=== PATIENT | female | born 2000 | race Hispanic/Latino ===

== ENCOUNTER 2024-04-14 18:32 | Inpatient (IN) | payer OTHER ==
[2024-04-14 19:07] VITALS: BMI 31.2
[2024-04-14] MEDS ORDERED: Tranexamic Acid 1,000 MG/10 ML VIAL IVP PRN ×2 (19:17→20:28)
[2024-04-14] MEDS ORDERED: hydrALAZINE 20 MG/ML VIAL SLOW IVP PRN ×2 (19:17→20:28)
[2024-04-14] MEDS ORDERED: Methylergonovine 0.2 MG/ML VIAL IM PRN ×2 (19:17→20:28)
[2024-04-14] MEDS ORDERED: Ondansetron PF 4 MG/2 ML Vial IVP PRN ×2 (19:17→20:28)
[2024-04-14] MEDS ORDERED: Docusate 100 MG CAP PO PRN (19:17)
[2024-04-14] MEDS ORDERED: Ibuprofen 800 MG TAB PO PRN (19:17)
[2024-04-14] MEDS ORDERED: Misoprostol 200 MCG TAB PR PRN ×2 (19:17→20:28)
[2024-04-14] MEDS ORDERED: Promethazine HCl 25 MG/ML VIAL IM PRN ×2 (19:17→20:28)
[2024-04-14] MEDS ORDERED: Diphenoxylate HCl/Atropine Tablet PO PRN ×3 (19:17→20:28)
[2024-04-14] MEDS ORDERED: Acetaminophen 500 MG TAB PO PRN ×2 (19:17→20:28)
[2024-04-14] MEDS ORDERED: Carboprost 250 MCG/ML AMP IM PRN ×2 (19:17→20:28)
[2024-04-14] MEDS ORDERED: Lidocaine 1% (PF) 30 ML VIAL SC PRN (19:17)
[2024-04-14] MEDS ORDERED: fentaNYL 50 mcg/mL 1 mL Vial SLOW IVP PRN ×2 (19:17→20:28)
[2024-04-14] MEDS ORDERED: Penicillin G Potassium 5 MILL.UNITS in Sodium Chloride 0.9% 100 ML IVPB SCH (19:30)
[2024-04-14] MEDS ORDERED: Penicillin G 2.5 MILL.units 2.5 MILL.UNITS in Premix 1 BAG IVPB SCH (19:30)
[2024-04-14] MEDS ORDERED: Oxytocin 30 units/NS 500 ML 500 ML IV SCH ×3 (19:30)
[2024-04-14 19:52] LABS: Hematocrit 31.5 % (34.9-44.5); Hemoglobin 9.5 g/dL (12.0-15.5); Mean Corpuscular HGB CONC 30.2 g/dL (32.0-36.0); Mean Corpuscular Hemoglobin 22.6 pg (27.0-33.0); Mean Corpuscular Volume 74.8 fL (81.6-98.3); Mean Platelet Volume 10.9 fL (7.4-10.4); Platelet Count 220 10x3/uL (150-450); RBC Distribution Width 15.4 % (11.5-14.5); Red Blood Cell (RBC) Count 4.21 10x6/uL (3.90-5.03); White Blood Cell (WBC) Count 8.2 10x3/uL (3.5-10.5)
[2024-04-14 20:24] LABS: Syphilis Antibody Nonreactive (Nonreactive); Syphilis Antibody Index 0.02 S/CO (<1.00 Non-Reactive)
[2024-04-14 20:26] LABS: HBsAg Index 0.15 S/CO (0-0.99); Hep B Surf Ag - L&D Non-Reactive S/CO (NonReactive)
[2024-04-14] MEDS ORDERED: Famotidine/PF 20 mg/2ml Vial SLOW IVP PRN (20:28)
[2024-04-14] MEDS ORDERED: Bicitra 30 ML UDCUP PO PRN (20:28)
[2024-04-14] MEDS ORDERED: CEFAZOLIN 2 GM in Sodium Chloride 0.9% 100 ML IVPB SCH (20:30)
[2024-04-15 10:07] LABS: Analyzer IN Cardio CS NICU; Critical Notified Whom: KRUCL; RapidComm Collect By CBN
[2024-04-15 10:10] LABS: Analyzer IN Cardio CS NICU; Critical Notified Whom: KRUCL; RapidComm Collect By CBN; pH (Cord, venous) 7.345 (7.250-7.350)
[2024-04-15] MEDS ORDERED: Acetaminophen 325 MG TAB PO PRN (10:49)
[2024-04-15] MEDS ORDERED: Methylergonovine 0.2 MG/ML VIAL IM PRN (10:49)
[2024-04-15] MEDS ORDERED: Lanolin Ointment 7 GM TUBE TOP PRN (10:49)
[2024-04-15] MEDS ORDERED: HYDROcodone/Acetaminophen 5/325 mg Tablet PO PRN ×2 (10:49)
[2024-04-15] MEDS ORDERED: Misoprostol 200 MCG TAB PR PRN (10:49)
[2024-04-15] MEDS ORDERED: hydrALAZINE 20 MG/ML VIAL SLOW IVP PRN (10:49)
[2024-04-15] MEDS ORDERED: Promethazine HCl 25 MG/ML VIAL IM PRN ×2 (10:49→12:04)
[2024-04-15] MEDS ORDERED: Oxytocin 30 units/NS 500 ML 500 ML IV SCH (11:00)
[2024-04-15] MEDS ORDERED: Ondansetron PF 4 MG/2 ML Vial IVP PRN ×2 (12:04)
[2024-04-15] MEDS ORDERED: Naloxone HCl 0.4 mg/ml Vial IVP PRN ×2 (12:04)
[2024-04-15] MEDS ORDERED: Moisturizing Cream (Eucerin) 113 GM JAR TOP PRN (12:04)
[2024-04-15] MEDS ORDERED: diphenhydrAMINE 50 MG/ML VIAL IVP PRN (12:04)
[2024-04-15] MEDS ORDERED: Naloxone HCl 0.4 mg/ml Vial IV PRN (12:04)
[2024-04-15] MEDS ORDERED: HYDROmorphone 0.5 MG/0.5 ML SYRINGE SLOW IVP PRN (12:04)
[2024-04-15] MEDS ORDERED: Meperidine HCl/PF 25 MG (1 mL) VIAL SLOW IVP PRN (12:04)
[2024-04-15] MEDS ORDERED: fentaNYL 50 mcg/mL 1 mL Vial SLOW IVP PRN (12:04)
[2024-04-15] MEDS ORDERED: Communication Order-Pharmacy FS SCH (12:15)
[2024-04-15] MEDS: Lactated Ringer's 1,000 ML IV SCH (12:17)
[2024-04-15] MEDS: Oxytocin 30 units/NS 500 ML 500 ML IV SCH (12:17)
[2024-04-15] MEDS: Ketorolac Tromethamine 30 MG (1 mL) VIAL IVP SCH (12:18)
[2024-04-15] MEDS: fentaNYL 50 mcg/mL 1 mL Vial ONE (13:53)
[2024-04-15] MEDS: Morphine PF 10 MG/10 ML VIAL ONE (13:54)
[2024-04-15] MEDS: Oxytocin 10 UNITS/ML VIAL ONE (13:54)
[2024-04-15] MEDS: Ondansetron PF 4 MG/2 ML Vial ONE (13:54)
[2024-04-15] MEDS: PHENYLEPHRINE-NS 100 MCG/ML 10 ML SYRINGE ONE (13:54)
[2024-04-15] MEDS: Dexamethasone 10 MG/ML VIAL ONE (13:54)
[2024-04-15] MEDS ORDERED: Ibuprofen 800 MG TAB PO SCH (14:00)
[2024-04-15] MEDS: Ondansetron PF 4 MG/2 ML Vial IVP PRN (16:48)
[2024-04-15] MEDS: Ketorolac Tromethamine 30 MG (1 mL) VIAL IVP PRN (18:13)
[2024-04-15] MEDS: Ferrous Sulfate 325 MG TAB PO SCH (22:05)
[2024-04-15] MEDS: Docusate 100 MG CAP PO SCH (22:05)
[2024-04-16 04:19] LABS: Hemoglobin 7.7 g/dL (12.0-15.5); Mean Corpuscular HGB CONC 29.6 g/dL (32.0-36.0); Mean Corpuscular Hemoglobin 22.4 pg (27.0-33.0); Mean Corpuscular Volume 75.6 fL (81.6-98.3); Mean Platelet Volume 11.3 fL (7.4-10.4); Platelet Count 207 10x3/uL (150-450); RBC Distribution Width 15.3 % (11.5-14.5); Red Blood Cell (RBC) Count 3.44 10x6/uL (3.90-5.03); White Blood Cell (WBC) Count 11.7 10x3/uL (3.5-10.5)
[2024-04-16] MEDS: Prenatal Vitamin 1 TAB PO SCH (08:16)
[2024-04-16] MEDS: HYDROcodone/Acetaminophen 5/325 mg Tablet PO PRN ×2 (08:17→16:48)
[2024-04-16] MEDS: Sodium Ferric Gluconate 250 MG, Admixture Fee 1 EACH in Sodium Chloride 0.9% 250 ML 250 ML IVPB SCH (11:21)
[2024-04-16] MEDS: Ibuprofen 800 MG TAB PO SCH (13:35)
[2024-04-16] MEDS: Simethicone Chewable 80 MG TAB PO PRN (13:38)
[2024-04-17] MEDS: Ibuprofen 800 MG TAB PO SCH (05:47)
[2024-04-18 07:58] VITALS: BP 107/75; TEMP 97.7
== END 2024-04-18 12:10 | disposition home or self-care (01) | DRG 787 ==
LOC: CSHLD 18:32 → CSHPP 04-15 13:45
PROVIDERS: ADMIT Family Medicine; ATTEND Family Medicine
PROC: 10D00Z1 Extraction of Products of Conception, Low, Open Approach (ICD-10-PCS; principal; 2024-04-15)
DX: O36.5930 Maternal care for other known or suspected poor fetal growth, third trimester, not applicable or unspecified (principal); D62 Acute posthemorrhagic anemia; Z3A.36 36 weeks gestation of pregnancy; Z37.0 Single live birth; O34.211 Maternal care for low transverse scar from previous cesarean delivery; O99.344 Other mental disorders complicating childbirth; F41.9 Anxiety disorder, unspecified; F32.A Depression, unspecified; O99.02 Anemia complicating childbirth; O66.41 Failed attempted vaginal birth after previous cesarean delivery
CPT/HCPCS: 36415; 51702; 82805; 85027; 86780; 86850; 86900; 86901; 87340; 99285; J1100; J1885; J2274; J2405; J2590; J2916; J3010; J7050; J7120

== ENCOUNTER 2024-06-07 18:58 | Emergency (ER) | payer OTHER, SELFPAY | END 2024-06-07 20:26 | disposition home or self-care (01) | LOC: CSHERS 18:58 | DX: N61.0 Mastitis without abscess (principal); N60.42 Mammary duct ectasia of left breast | CPT/HCPCS: 99283 ==

== ENCOUNTER 2024-06-09 15:15 | Emergency (ER) | payer OTHER ==
[2024-06-09] MEDS ORDERED: PROPOFOL 0 ML ONE (17:40)
[2024-06-09] MEDS ORDERED: Lidocaine 1% w/Epinephrine 1:200K 30 ML VIAL ONE (17:45)
[2024-06-09] MEDS ORDERED: Sulfameth/Trimethoprim DS 800-160mg TAB ONE (20:17)
[2024-06-09] MEDS ORDERED: HYDROcodone/Acetaminophen 5/325 mg Tablet ONE (20:24)
== END 2024-06-09 20:00 | disposition home or self-care (01) ==
LOC: CSHERS 15:15
DX: N61.1 Abscess of the breast and nipple (principal)
CPT/HCPCS: 10060; 87070; 87077; 87186; 87205; J2704